=== PATIENT | male | born 1990 | race Caucasian/White ===

== ENCOUNTER 2016-06-02 22:13 | Emergency (ER) | payer SELFPAY ==
[~2016-06-02] VITALS: Ht 175.3 cm; Wt 125.1 kg
[~2016-06-02 22:13] MED LIST: FLEXERIL5 MG PO; FLOMAX0.4 MG PO; NAPROSYN500 MG PO; NORCO 5/3251 TABLET PO; PERCOCET 5/31 TABLET PO; PREDNISONE10 M1 PO; ULTRAM50 MG PO; VALIUM5 MG PO; ZOFRAN4 MG PO
[2016-06-02 22:42] VITALS: BP 150/105
== END 2016-06-02 23:45 | disposition left against medical advice (07) ==
LOC: EME 22:13
DX: K12.2 Cellulitis and abscess of mouth (principal); Z53.21 Procedure and treatment not carried out due to patient leaving prior to being seen by health care provider

== ENCOUNTER 2017-01-16 01:55 | Observation (INO) | payer OTHER ==
[~2017-01-16] VITALS: Ht 175.3 cm; Wt 128.7 kg
[2017-01-16 03:08] LABS: EOSINOPHIL (%) 1.4 % (0-5); EOSINOPHIL COUNT 0.2 K/uL (0-0.3); HEMATOCRIT 46.8 % (38.0-50.0); IMMATURE GRANULOCYTE (%) 0.4 % (0.0-0.7); INSTRUMENT ABS NEUTROPHIL CT 6.8 K/uL; LYMPHOCYTE COUNT 2.4 K/uL (1.0-2.8); MCH 29.4 PG (29.0-34.0); MCHC 32.9 G/DL (30.0-36.0); MCV 89.3 FL (86-99); MONOCYTE (%) 11.4 % (3-12); MONOCYTE COUNT 1.2 K/uL (0-0.8); NEUTROPHIL (%) 63.8 % (45-76); NEUTROPHIL COUNT 6.8 K/uL (1.8-6.4); PLATELET COUNT 206 K/uL (156-360); RBC DIS.WIDTH-CV 13.2 % (11.8-14.6); RBC DIS.WIDTH-SD 43.3 % (39-53); RED BLOOD COUNT 5.24 M/uL (4.00-5.50); WHITE BLOOD COUNT 10.6 K/uL (4.1-10.2)
[2017-01-16 03:16] LABS: CHLORIDE 104 mEq/L (99-109); POTASSIUM 3.6 mEq/L (3.7-5.4); SODIUM 139 mEq/L (136-147)
[2017-01-16 03:18] LABS: GLUCOSE 105 mg/dL (70-99)
[2017-01-16 03:20] LABS: ANION GAP 11 MEQ/L (2-14); TOTAL BILIRUBIN 0.5 mg/dL (0.0-1.0)
[2017-01-16 03:22] LABS: ALKALINE PHOSPHATASE 67 IU/L (3-129); GFR ESTIMATE (CALCULATED) > 59 mL/min/
[2017-01-16 03:23] LABS: UREA NITROGEN (BUN) 14 mg/dL (9-23)
[2017-01-16 05:12] VITALS: BP 140/67
[2017-01-16 08:00] VITALS: BP 141/80
[2017-01-16] MEDS ORDERED: HYDROCHLOROTHIA25 MG PO (08:35)
[2017-01-16 12:29] VITALS: BP 117/51
[2017-01-16 16:10] VITALS: BP 125/66
[2017-01-16] MEDS ORDERED: ADVIL200 MG PO (17:22)
[2017-01-16 20:10] VITALS: BP 136/82
[2017-01-17] VITALS (7 sets, daily range): BP systolic 118–167; BP diastolic 55–95
[2017-01-17 05:44] LABS: EOSINOPHIL COUNT 0.1 K/uL (0-0.3); HEMATOCRIT 43.2 % (38.0-50.0); IMMATURE GRANULOCYTE (%) 0.5 % (0.0-0.7); IMMATURE GRANULOCYTE COUNT 0.1 K/uL; INSTRUMENT ABS NEUTROPHIL CT 6.9 K/uL; LYMPHOCYTE COUNT 2.9 K/uL (1.0-2.8); MCHC 31.9 G/DL (30.0-36.0); MCV 90.8 FL (86-99); MEAN PLAT.VOLUME 9.9 uM^3 (9.0-12.4); MONOCYTE (%) 10.3 % (3-12); MONOCYTE COUNT 1.2 K/uL (0-0.8); NEUTROPHIL (%) 61.9 % (45-76); NEUTROPHIL COUNT 6.9 K/uL (1.8-6.4); PLATELET COUNT 200 K/uL (156-360); RBC DIS.WIDTH-CV 13.2 % (11.8-14.6); RBC DIS.WIDTH-SD 43.8 % (39-53); RED BLOOD COUNT 4.76 M/uL (4.00-5.50); WHITE BLOOD COUNT 11.2 K/uL (4.1-10.2)
[2017-01-17 06:07] LABS: ANION GAP 7 MEQ/L (2-14); CHLORIDE 105 MEQ/L (99-109); GFR ESTIMATE (CALCULATED) > 59 mL/min/; GLUCOSE 130 mg/dL (70-99); POTASSIUM 4.1 MEQ/L (3.7-5.4); SAMPLE HEMOLYSIS CHECK 0; SAMPLE ICTERIC CHECK 0; SAMPLE LIPEMIA CHECK 0; SODIUM 139 MEQ/L (136-147); UREA NITROGEN (BUN) 10 mg/dL (9-23)
[2017-01-18 03:59] VITALS: BP 113/57
[2017-01-18 07:00] VITALS: BP 128/86
[2017-01-18] MEDS ORDERED: DOCUSATE SODIU100 MG PO (10:20)
[2017-01-18] MEDS ORDERED: OXYCODONE-APAP1 EACH PO (10:22)
[2017-01-18] MEDS ORDERED: FLAGYL500 MG PO (10:24)
[2017-01-18] MEDS ORDERED: CEFTRIAXONE2 G1 IV (10:28)
[2017-01-18 11:31] VITALS: BP 148/89
== END 2017-01-18 12:33 | disposition home or self-care (01) ==
LOC: EME 01:55 → EDOF 03:15 → 5WEST 03:15 → EDOF 03:15 → ENRESERV 03:16 → 5WEST 04:39 → ENPENDDIS 01-18 → 5WEST 01-18 12:33
PROVIDERS: Emergency Medicine; Hospitalist
DX: L03.211 Cellulitis of face (principal); K04.7 Periapical abscess without sinus; R13.10 Dysphagia, unspecified; R68.84 Jaw pain; M60.9 Myositis, unspecified; R00.0 Tachycardia, unspecified; E66.9 Obesity, unspecified
CPT/HCPCS: 80048; 80053; 83605; 85025; 87040; 99281; 99284; G0378; J0295; J1650; J1885; J2405; J3010; J7030; J7050; J7120; J7512

== ENCOUNTER 2017-02-21 10:34 | Emergency (ER) | payer OTHER ==
[~2017-02-21] VITALS: Ht 175.3 cm; Wt 127.8 kg
[~2017-02-21 10:34] MED LIST changes: +ADVIL200 MG PO; +CEFTRIAXONE2 G1 IV; +DOCUSATE SODIU100 MG PO; +FLAGYL500 MG PO; +HYDROCHLOROTHIA25 MG PO; +OXYCODONE-APAP1 EACH PO
[2017-02-21] MEDS ORDERED: CLEOCIN300 MG PO (13:40)
[2017-02-21] MEDS ORDERED: MEDROL DOSEPAK4 MG PO (13:40)
[2017-02-21] MEDS ORDERED: ULTRAM50 MG PO (13:40)
[2017-02-21] MEDS ORDERED: SKELAXIN800 MG PO (13:40)
[2017-02-21] MEDS ORDERED: LIDODERM 5% P1 PATCH TD (14:16)
[2017-02-21 14:31] VITALS: BP 129/77
== END 2017-02-21 14:32 | disposition home or self-care (01) ==
LOC: EME 10:34
DX: I88.9 Nonspecific lymphadenitis, unspecified (principal); M54.31 Sciatica, right side; F17.200 Nicotine dependence, unspecified, uncomplicated; I10 Essential (primary) hypertension
CPT/HCPCS: 99281; 99284; J1885